=== PATIENT | female | born 1965 | race Caucasian/White ===

== ENCOUNTER 2017-06-20 06:52 | Emergency (ER) | payer OTHER ==
[~2017-06-20] VITALS: Ht 162.6 cm; Wt 127.0 kg
[~2017-06-20 06:52] MED LIST: BENTYL10 MG PO; CALCIUM 500+D1 EACH PO; HYDROCHLOROTHIA25 MG PO; METOPROLOL SUCC50 MG PO; OMEGA 3 1,0001 EACH PO; ZOFRAN ODT4 MG SL
--- OUTSIDE RECORDS SUMMARY | 2017-06-20 06:56 | XMS REPORT ---
Author Author [facility] Address Unknown Phone Unavailable Care Team Providers Care Formation Testing Operator Name Role Phone CINDY PEREZ Unavailable Unavailable DEDRA SAENZ Unavailable Unavailable TUNG, YUSRA Unavailable Unavailable Problems This patient has no known problems. Allergies, Adverse Reactions, Alerts This patient has no known allergies or adverse reactions. Medications This patient has no known medications. Results Test Description Test Time Test Comments Text Results Atomic Results Result Comments TISSUE EXAM 2017-03-28 12:02:00 Surgical Pathology Report Case: [id number] Authorizing Provider: Cindy Perez Collected: 03/25/2017 1107 Ordering Location: [facility] Endoscopy Received: 2016 1359 Services Pathologist: Kellen Sanchez MD Specimens: A) - Biopsy, Gastric, random B) - Distal Esophagus, bx A. STOMACH, RANDOM, BIOPSY- REACTIVE GASTROPATHY- NEGATIVE FOR HELICOBACTER ON WARTHIN-STARRY STAINB. DISTAL ESOPHAGUS, BIOPSY- REFLUX ESOPHAGITIS- FOCAL INTESTINAL METAPLASIA- NEGATIVE FOR DYSPLASIA AND MALIGNANCY Signing Pathologist Direct Phone Line: [phone] signed by Kellen Sanchez MD on 03/28/2017 at 12:02 [id number] x 2; [id number], history of sleeve gastrectomyA. Random gastric biopsy. B. Distal esophagus biopsySpecimen is received in two containers of formalin both labeled with the patient's information.Specimen A: Labeled " random gastric biopsy" consists of five fragments of rascon tissue ranging from 0.1 to 0.3 cm, submitted in A1.Specimen B: Labeled "distal esophagus biopsy" consists of mucosal rascon-white fragments fragments of rascon tissue ranging from less than 0.1 to 0.2 cm, submitted in B1. CG/ew Performed. MR, ABDOMEN, WITH 2017-03-02 09:31:00 FINAL REPORT TECHNIQUE: MRI of the abdomen WITHOUT and WITH intravenous contrast. INDICATION : 51-year-old woman with mass of right adrenal gland. COMPARISON: Abdomen MRI ; abdomen and pelvis CTs dating back to 08/19/2005, the most recent is dated 10/07/2016. FINDINGS: LOWER THORAX: Subsegmental atelectasis and/or scarring in the left lung base. LIVER: Decreased signal intensity of the liver on opposed phase imaging, consistent with hepatic steatosis. No focal hepatic lesions. BILIARY: Gallbladder is unremarkable. No biliary ductal dilatation or filling defect.SPLEEN: No splenomegaly.PANCREAS: No focal masses or ductal dilatation. ADRENALS: Decreased signal intensity of the 1 cm right adrenal nodule on opposed phase imaging, consistent with a benign adenoma; this nodule is unchanged since exams dating back to 08/19/2005. Normal left adrenal gland.KIDNEYS/URETERS: No hydronephrosis or solid mass lesions. PERITONEUM/ RETROPERITONEUM: No free fluid.LYMPH NODES: No lymphadenopathy.VESSELS: Unremarkable. GI TRACT: No distention or wall thickening. BONES AND SOFT TISSUES : Unremarkable. IMPRESSION:Benign right adrenal adenoma, unchanged since 2005. Hepatic steatosis. Signed: Anna Gao MDReport Verified Date/Time: 03/02/2017 09:31:36 Reading Location: [address] Body Reading Room -CREATININE 2017-03-02 08:27:00 POC-CREATININE (BEAKER) (test iwtl=2003) 0.6 mg/dL 0.6-1.3 [address] [address] POC-EGFR (BEAKER) (test mmms=7450) 106 mL/min/1.73M2 URINALYSIS W/ [id number] 15:28:00* Test Item Value Reference Range Comments COLOR (BEAKER) (test lrzb=385) Light Yellow CLARITY (BEAKER) (test nyfi=216) Clear SPECIFIC GRAVITY UA (BEAKER) (test zppx=047) 1.016 1.001-1.035 PH UA (BEAKER) (test leil=145) 6.0 5.0-8.0 PROTEIN UA (BEAKER) (test hxoc=294) Negative Negative GLUCOSE UA (BEAKER) (test mevp=355) Negative Negative KETONES UA (BEAKER) (test peku=673) Negative Negative BILIRUBIN UA (BEAKER) (test oqvu=452) Negative Negative BLOOD UA (BEAKER) (test mrke=616) Trace Negative NITRITE UA (BEAKER) (test fpid=905) Negative Negative LEUKOCYTE ESTERASE UA (BEAKER) (test trvs=332) Negative Negative UROBILINOGEN UA (BEAKER) (test btdm=024) 0.2 mg/dL 0.2-1.0 RBC UA (BEAKER) (test ohvy=661) 1 /HPF WBC UA (BEAKER) (test qtij=205) 1 /HPF BACTERIA (BEAKER) (test udit=636) Rare SQUAMOUS EPITHELIAL (BEAKER) (test tvmb=177) < /HPF SOURCE(BEAKER) (test wzsj=9532) Urine, Voided HEPATIC FUNCTION [id number] 15:24:00* Test Item Value Reference Range Comments TOTAL PROTEIN (BEAKER) (test hzmi=923) 7.9 gm/dL 6.0-8.3 Specimen slightly hemolyzed ALBUMIN (BEAKER) (test ftfx=8954) 3.8 g/dL 3.5-5.0 Specimen slightly hemolyzed BILIRUBIN TOTAL (BEAKER) (test zmin=698) 0.3 mg/dL 0.2-1.2 Specimen slightly hemolyzed BILIRUBIN DIRECT (BEAKER) (test pjzz=565) < mg/dL 0.1-0.5 Specimen slightly hemolyzed ALKALINE PHOSPHATASE (BEAKER) (test sgkk=397) 91 U/L 40-150 AST (SGOT) (BEAKER) (test vkxo=310) 18 U/L 5-34 Specimen slightly hemolyzed ALT (SGPT) (BEAKER) (test ywtx=316) 22 U/L 6-55 Specimen slightly hemolyzed Specimen markedly [id number] 15:22:00* Test Item Value Reference Range Comments LIPASE (BEAKER) (test kcat=991) 33 U/L 8-78 [id number] 15:22:00* Test Item Value Reference Range Comments AMYLASE (BEAKER) (test scvv=841) 32 U/L 25-125 Specimen slightly hemolyzed BASIC METABOLIC [id number] 15:22:00* Test Item Value Reference Range Comments SODIUM (BEAKER) (test cmtv=169) 140 meq/L 136-145 POTASSIUM (BEAKER) (test eptd=526) 4.1 meq/L 3.5-5.1 Specimen slightly hemolyzed CHLORIDE (BEAKER) (test kxcs=627) 105 meq/L 98-107 CO2 (BEAKER) (test ldwa=848) 25 meq/L 22-29 BLOOD UREA NITROGEN (BEAKER) (test nzxj=297) 16 mg/dL 7-21 CREATININE (BEAKER) (test ipey=388) 0.71 mg/dL 0.57-1.25 Specimen slightly hemolyzed GLUCOSE RANDOM (BEAKER) (test xcql=894) 98 mg/dL 70-105 CALCIUM (BEAKER) (test umgg=353) 9.6 mg/dL 8.4-10.2 EGFR (BEAKER) (test dler=5276) 88 mL/min/1.73 sq m ESTIMATED GFR IS NOT ACCURATE CREATININE CLEARANCE IN PREDICTING GLOMERULAR FILTRATION RATE. ESTIMATED GFR IS NOT APPLICABLE FOR DIALYSIS PATIENTS. CBC W/PLT COUNT & AUTO [id number] 14:52:00* Test Item Value Reference Range Comments WHITE BLOOD CELL COUNT (BEAKER) (test zvry=704) 10.7 K/ L 4.0-10.0 RED BLOOD CELL COUNT (BEAKER) (test crjn=652) 4.56 M/ L 4.00-5.00 HEMOGLOBIN (BEAKER) (test eyki=538) 15.3 GM/DL 12.0-15.0 HEMATOCRIT (BEAKER) (test hxhr=575) 42.5 % 36.0-45.0 MEAN CORPUSCULAR VOLUME (BEAKER) (test ntij=398) 93.1 fL 82.0-99.0 MEAN CORPUSCULAR HEMOGLOBIN (BEAKER) (test qahd=074) 33.6 pg 27.0-33.0 MEAN CORPUSCULAR HEMOGLOBIN CONC (BEAKER) (test eueu=273) 36.1 GM/DL 32.0- 36.0 RED CELL DISTRIBUTION WIDTH (BEAKER) (test daep=550) 11.8 % 10.3-14.2 PLATELET COUNT (BEAKER) (test zudh=085) 269 K/CU MM 150-430 MEAN PLATELET VOLUME (BEAKER) (test wzlx=627) 8.1 fL 6.5-10.5 NUCLEATED RED BLOOD CELLS (BEAKER) (test fkmy=414) 0 /100 WBC 0-0 NEUTROPHILS RELATIVE PERCENT (BEAKER) (test ooen=003) 62 % LYMPHOCYTES RELATIVE PERCENT (BEAKER) (test hloq=764) 27 % MONOCYTES RELATIVE PERCENT (BEAKER) (test kwns=063) 8 % EOSINOPHILS RELATIVE PERCENT (BEAKER) (test cofb=408) 2 % BASOPHILS RELATIVE PERCENT (BEAKER) (test ukgg=760) 1 % NEUTROPHILS ABSOLUTE COUNT (BEAKER) (test bbrs=763) 6.64 K/ L 1.80-8.00 LYMPHOCYTES ABSOLUTE COUNT (BEAKER) (test wohx=001) 2.84 K/ L 1.48-4.50 MONOCYTES ABSOLUTE COUNT (BEAKER) (test iwot=882) 0.90 K/ L 0.00-1.30 EOSINOPHILS ABSOLUTE COUNT (BEAKER) (test osjb=170) 0.26 K/ L 0.00-0.50 BASOPHILS ABSOLUTE COUNT (BEAKER) (test qwcu=882) 0.07 K/ L 0.00-0.20 [id number] 16:47:00* Test Item Value Reference Range Comments LAB AP CPT CODE (BEAKER) (test utni=3435) [address] CYTOLOGY [id number] 14:00:00* Test Item Value Reference Range Comments CYTOLOGY RESULT POINTER (BEAKER) (test bknu=1760) See Separate Report ALKALINE [id number] 15:22:00* Test Item Value Reference Range Comments ALKALINE PHOSPHATASE (BEAKER) (test jbeu=911) 67 U/L 40-150 Effective 02/26/2014: Alkaline Phosphatase Reference Range Change-Adult onlyNew : 40-150 Previous: [id number] 15:22:00* Test Item Value Reference Range Comments SODIUM (BEAKER) (test dpzh=419) 140 meq/L 136-145 POTASSIUM (BEAKER) (test uatk=066) 4.0 meq/L 3.5-5.1 CHLORIDE (BEAKER) (test zmyy=543) 105 meq/L 98-107 CO2 (BEAKER) (test lpwh=396) 21 meq/L 22-29 AST (SGOT)2016-06-02 15:22:00* Test Item Value Reference Range Comments AST (SGOT) (BEAKER) (test vzup=119) 19 U/L 5-34 BUN AND [id number] 15:22:00* Test Item Value Reference Range Comments BLOOD UREA NITROGEN (BEAKER) (test rrvp=397) 20 mg/dL 7-21 CREATININE (BEAKER) (test wueg=989) 0.65 mg/dL 0.57-1.25 EGFR (BEAKER) (test qfvl=4581) 97 mL/min/1.73 sq m ESTIMATED GFR IS NOT ACCURATE CREATININE CLEARANCE IN PREDICTING GLOMERULAR FILTRATION RATE. ESTIMATED GFR IS NOT APPLICABLE FOR DIALYSIS PATIENTS. PT/[id number] 15:10:00* Test Item Value Reference Range Comments PROTIME (BEAKER) (test mrrs=721) 13.1 seconds 11.7-14.7 INR (BEAKER) (test byhx=391) 1.0 <=5.9 PARTIAL THROMBOPLASTIN TIME (BEAKER) (test blkv=627) 33.5 seconds 22.5-36.0 RECOMMENDED COUMADIN/WARFARIN INR THERAPY RANGESSTANDARD DOSE: 2.0 - 3.0 Includes: PROPHYLAXIS for venous thrombosis, systemic embolization; TREATMENT for venous thrombosis and/or pulmonary embolus.HIGH RISK: Target INR is 2.5-3.5 for patients with mechanical heart valves.[id number] 15:07:00* Test Item Value Reference Range Comments HEMOGLOBIN (BEAKER) (test lhln=811) 14.7 GM/DL 12.0-15.0 PLATELET [id number] 15:07:00* Test Item Value Reference Range Comments PLATELET COUNT (MELISSA) (test emnl=299) 282 K/CU MM 150-430
--- NOTE | 2017-06-20 07:59 | Diagnostic Imaging Report ---
PROCEDURE: X-RAY CHEST, TWO VIEWS COMPARISON: Patients [facility], DX, CHEST SINGLE (PORTABLE), 09/26/2015, 9:55. INDICATIONS: COUGH, SHORTNESS OF BREATH, FEVER WITH LEFT SIDE CHEST PAIN FINDINGS: LUNGS: No consolidations or edema. Opacity and tenting of the left hemidiaphragm represents scarring from a previous inflammatory process. Similar findings were present on the prior study. PLEURA: No effusions or pneumothorax. HEART \T\ MEDIASTINUM: The heart is within normal size-limits. BONES \T\ SOFT TISSUES: No acute findings. CONCLUSION: No acute thoracic abnormality. Waldo Bee D.O. Dictated by: Waldo Bee D.O. on 06/20/2017 at 7:59 Electronically approved by: Waldo Bee D.O. on 06/20/2017 at 7:59
[2017-06-20] MEDS ORDERED: SODIUM CHLORIDE 0.9% 1000ML 1,000 ML IV SCH (08:45)
[2017-06-20] MEDS ORDERED: LEVOFLOXACIN 500 MG TAB PO ONE (08:45)
[2017-06-20] MEDS ORDERED: METHYLPREDNISOLONE SOD SUCC 125 MG/2ML VIAL IV ONE (08:45)
== END 2017-06-20 10:32 | disposition home or self-care (01) ==
LOC: ER 06:52
DX: R50.9 Fever, unspecified (principal); R05 Cough; J20.9 Acute bronchitis, unspecified
CPT/HCPCS: 71046; 99283; J2930; J7030

== ENCOUNTER 2017-10-31 13:57 | Emergency (ER) | payer OTHER ==
[~2017-10-31] VITALS: Ht 162.6 cm; Wt 127.0 kg
[2017-10-31] MEDS ORDERED: CYCLOBENZAPRINE HCL 10 MG TAB PO ONE (14:15)
[2017-10-31] MEDS ORDERED: HYDROCODONE/APAP 7.5MG-325MG 1 EA TAB PO PRN (14:15)
[2017-10-31 14:26] LABS: CLARITY,URINE CLEAR (CLEAR); COLOR,URINE YELLOW (YELLOW)
[2017-10-31 14:27] LABS: BILIRUBIN,URINE NEGATIVE (NEGATIVE); KETONES,URINE NEGATIVE (NEGATIVE); LEUKOCYTE ESTERASE ,URINE NEGATIVE (NEGATIVE); NITRITE,URINE NEGATIVE (NEGATIVE); PROTEIN,URINE DIPSTICK NEGATIVE (NEGATIVE); URINE UROBILINOGEN 0.2 mg/dL (0.2 - 1)
[2017-10-31 14:44] LABS: BACTERIA,URINE MODERATE /HPF; EPITHELIAL CELLS,URINE FEW /LPF
[2017-10-31 14:54] LABS: ALANINE AMINOTRANSFERASE 19 IU/L (0-55); ALBUMIN 3.9 g/dL (3.5-5.0); ALBUMIN/GLOBULIN RATIO 1.1 (0.8-2.0); ALKALINE PHOSPHATASE 62 IU/L (40-150); BLOOD UREA NITROGEN 13 mg/dL (7-26); BUN/CREATININE RATIO 18 (6-25); CALCIUM 9.8 mg/dL (8.4-10.2); CARBON DIOXIDE 25 mmol/L (22-29); CHLORIDE 105 mmol/L (98-107); CREATININE, SERUM 0.71 mg/dL (0.57-1.11); EST GLOMERULAR FILTRATION RATE > 60 ML/MIN (60-); GLUCOSE 82 mg/dL (74-118); LIPASE 25 U/L (8-78); SODIUM 139 mmol/L (136-145)
[2017-10-31 14:59] LABS: BASOPHILS # (AUTO) 0.1 (0.0-0.1); BASOPHILS % 0.4 % (0.0-1.0); EOSINOPHILS # (AUTO) 0.2 (0.0-0.4); EOSINOPHILS % 1.6 % (0.0-6.0); HEMATOCRIT 39.8 % (34.2-44.1); HEMOGLOBIN 14.4 g/dL (12.0-16.0); LYMPHOCYTES # (AUTO) 3.3 (1.0-3.2); LYMPHOCYTES % 29.3 % (18.0-39.1); MEAN CORPUSCULAR HEMOGLOBIN 31.9 pg (28-32); MEAN CORPUSCULAR HGB CONC 36.2 g/dL (31-35); MEAN CORPUSCULAR VOLUME 88.2 fL (81-99); MONOCYTES % 9.1 % (4.4-11.3); NEUTROPHILS # (AUTO) 6.6 (2.1-6.9); NEUTROPHILS % 59.3 % (38.7-80.0); PLATELET COUNT 272 x10e3/uL (140-360); RED BLOOD COUNT 4.51 x10e6/uL (3.6-5.1); RED CELL DISTRIBUTION WIDTH 12.7 % (11.7-14.4)
--- NOTE | 2017-10-31 15:33 | Diagnostic Imaging Report ---
PROCEDURE:X-RAY UNILATERAL RIBS WITH CHEST X-RAY COMPARISON:Chest x-ray dated 06/20/17 INDICATIONS:POSTERIOR RIGHT RIB PAIN FINDINGS: No lung consolidation. No visible pneumothorax. Mild left basilar haziness, likely subsegmental atelectasis. No acute osseous abnormality, specifically no evidence of right-sided rib fracture. CONCLUSION: No evidence of right-sided rib fracture. Dictated by: Dakota Coombs M.D. on 10/31/2017 at 15:38 Electronically approved by: Dakota Coombs M.D. on 10/31/2017 at 15:38
[2017-10-31 16:12] VITALS: BP 121/78
== END 2017-10-31 16:00 | disposition home or self-care (01) ==
LOC: ER 13:57
DX: M54.6 Pain in thoracic spine (principal); M54.5 Low back pain; K22.70 Barrett's esophagus without dysplasia
CPT/HCPCS: 36415; 71101; 80053; 81001; 83690; 85025; 87086; 99283

== ENCOUNTER 2018-04-24 18:15 | Emergency (ER) | payer OTHER ==
[~2018-04-24] VITALS: Ht 162.6 cm; Wt 72.6 kg
--- OUTSIDE RECORDS SUMMARY | 2018-04-24 18:17 | XMS REPORT | Clinical Summary ---
Author Author DELANEY [facility] Address Unknown Phone Unavailable Care Team Providers Care Five Piece Expansion Maker Hand Name Role Phone Sarah Hernandez MD PCP Allergies Comments Active Allergy Reactions Severity Noted Date IV Contrast Iodine And Iodide Anaphylaxis High 06/30/2015 Containing Products Medications End Date Status Medication Sig Dispensed Refills Start Date Active omega-3 fatty acids-fish Take 1 g by 0 oil 340-1,000 mg Cap per mouth daily . capsule Active hydroCHLOROthiazide Take 25 mg by 0 (HYDRODIURIL) 25 MG mouth daily . tablet Active LORazepam (ATIVAN) 0.5 MG Take 0.5 mg 0 tablet by mouth every 6 (six) hours as needed for Anxiety. Active multivitamin per tablet Take 1 tablet 0 by mouth daily Bariatric Multivitamin w/ Calcium. Active BIOTIN ORAL Take 5,000 0 mcg by mouth daily . Active omeprazole (PRILOSEC) 40 Take 40 mg by 0 MG capsule mouth 2 (two) times daily . Active aspirin 81 MG EC tablet Take 81 mg by 0 mouth daily. Active BACILLUS COAGULANS Take 1 tablet 0 (PROBIOTIC, B. COAGULANS, by mouth ORAL) daily Adds Collagen Protein. Active CYANOCOBALAMIN, VITAMIN Take by 0 B-12, (VITAMIN B-12 ORAL) mouth. Active cholecalciferol, vitamin Take 2,000 0 D3, 5,000 unit Tab Units by mouth daily . Active calcium carbonate (TUMS) Take 1 tablet 0 500 mg chewable tablet by mouth daily. Active IBUPROFEN IB ORAL Take 800 mg 0 by mouth as needed . Active TURMERIC/TURMERIC Take by mouth 0 EXT/PEPR EXT daily. (TURMERIC-TURMERIC EXT-PEPPER) 500-3 mg Cap Active metoprolol (TOPROL-XL) 25 Take 25 mg by 0 MG 24 hr tablet mouth daily. Active PARoxetine (PAXIL) 10 MG Take 10 mg by 0 tablet mouth every morning. Active b complex vitamins Take 1 0 capsule capsule by mouth daily. Active docusate sodium (STOOL Take 1 0 SOFTENER ORAL) capsule by mouth as needed. 08/18/2017 Discontinued metoprolol (TOPROL-XL) Take 50 mg by 0 100 MG 24 hr tablet mouth daily . 08/18/2017 Discontinued Missing or Non-Formulary Cranberry/C 0 Medication supplement . 08/18/2017 Discontinued Missing or Non-Formulary 1,000 mg 0 Medication Calcium with 800 mg Vit D . 08/18/2017 Discontinued cholecalciferol, vitamin Take 5,000 0 D3, 1,000 unit capsule Units by mouth daily . 08/18/2017 Discontinued Missing or Non-Formulary 500 mg daily 0 Medication Tumeric . 07/08/2017 Discontinued HYDROcodone-acetaminophen Take 1 tablet 0 (NORCO 5-325) 5-325 mg by mouth per tablet every 6 (six) hours as needed for Pain. 07/08/2017 Discontinued PREDNISONE ORAL Take 4 mg by 0 mouth. 08/18/2017 Discontinued DULCOLAX, BISACODYL, ORAL Take by mouth 0 as needed. 07/08/2017 Discontinued CALCIUM CARB/MAGNESIUM Take by mouth 0 HYDROX (MYLANTA ORAL) as needed. 08/18/2017 Discontinued acetaminophen-codeine Take 1 tablet 0 (TYLENOL #3) 300-30 mg by mouth per tablet every 4 (four) hours as needed for Pain. 08/18/2017 Discontinued traMADol (ULTRAM) 50 mg Take 50 mg by 0 tablet mouth every 6 (six) hours as needed for Pain. 01/16/2018 Discontinued metoprolol (TOPROL-XL) 50 Take 50 mg by 0 MG 24 hr tablet mouth daily. 02/16/2018 pantoprazole (PROTONIX) Take 1 tablet 30 tablet 0 40 MG tablet (40 mg total) 8 by mouth daily for 30 days. Active Problems Problem Noted Date Gastric perforation s/p ex-lap, primary repair with Porfirio patch 01/10/18 01/10/2018 S/P exploratory laparotomy 01/10/2018 Abnormal findings on esophagogastroduodenoscopy (EGD) 01/09/2018 Ovarian cyst 06/08/2016 Encounters Care Team Description Date Type Specialty Sarah Hernandez MD Leukocytosis, unspecified type; Cervical adenopathy 03/16/2018 Hospital Radiology Encounter 03/15/2018 Travel Sarah Hernandez MD Leukocytosis, unspecified type (Primary Dx); Cervical adenopathy 03/09/2018 Outside Orders Radiology Ashlyn Jeremías Oswaldo, HIGHWAY MAINTAINER 01/10/2018 Anesthesia Event Lonnie Brooks MD LAPAROTOMY,EXPLORATORY 01/10/2018 Surgery Hien Kolb, HIGHWAY MAINTAINER 01/09/2018 Anesthesia Gastroenterology Event Trevon, Thad Bhavesh UPPER ENDOSCOPY,DILATATION 01/09/2018 Surgery Gastroenterology Trevon, Thad Bhavesh Lori Ortega MD Shiekh Sroujieh, Kathi Oscar MD Abnormal findings on esophagogastroduodenoscopy (EGD) (Primary Dx); Gastric perforation (HCC); S/P exploratory laparotomy 01/09/2018 [facility] General Internal Medicine - Encounter 01/16/2018 Hallie Diaz MD 01/09/2018 Orders Only Internal Medicine Resource, [employer] Preadmit Phone 01/06/2018 Hospital Pre-Admission Testing Encounter Bahman Rivera MD 09/07/2017 Anesthesia Event Trevon, Thad Bhavesh COLONOSCOPY,POLYPECTOMY 09/07/2017 Surgery Trevon, Thad Bhavesh 09/07/2017 Hospital Encounter Resource, [employer]read[employer] Phone 08/18/2017 Hospital Pre-Admission Testing Encounter Daniel Orellana Jr., MD 07/22/2017 Anesthesia Gastroenterology Event Trevon, Thad Bhavesh UPPER ENDOSCOPY,DILATATION 07/22/2017 Surgery Gastroenterology Trevon, Thad Bhavesh 07/22/2017 Hospital Gastroenterology Encounter Resource, [employer] Preadmit Phone 07/15/2017 Hospital Pre-Admission Testing Encounter Torri Garcia MD 07/08/2017 Anesthesia Gastroenterology Event Trevon, Thad Bhavesh UPPER ENDOSCOPY 07/08/2017 Surgery Gastroenterology Trevon, Thad Bhavesh 07/08/2017 Hospital Gastroenterology Encounter Trevon, Thad Bhavesh UPPER ENDOSCOPY,DILATATION 06/22/2017 Surgery Gastroenterology Lolita Sharpe MD 06/22/2017 Anesthesia Gastroenterology Event Trevon, Thad Bhavesh 06/22/2017 Hospital Gastroenterology Encounter Trevon, Thad Bhavesh Efrain, [employer] Preadmit Phone 06/21/2017 Hospital Pre-Admission Testing Encounter after 04/23/2017 Social History Date Tobacco Use Types Packs/Day Years Used Current Every Day Smoker 0.25 21 Smokeless Tobacco: Never Used Tobacco Cessation: Ready to Quit: Yes; Counseling Given: Yes Comments: Has Tried Wellbutrin Alcohol Use Drinks/Week oz/Week Comments Yes Occasionally Sex Assigned at Date Recorded Not on file Industry Job Start Date Occupation Not on file Not on file Not on file Travel End Travel History Travel Start No recent travel history available. Last Filed Vital Signs Time Taken Vital Sign Reading 01/16/2018 11:24 AM CDT Blood Pressure 120/67 01/16/2018 11:24 AM CDT Pulse 52 01/16/2018 11:24 AM CDT Temperature 36.6 C (97.9 F) 01/16/2018 11:24 AM CDT Respiratory Rate 18 01/16/2018 11:24 AM CDT Oxygen Saturation 96% - Inhaled Oxygen - Concentration 01/09/2018 9:55 AM CDT Weight 77.8 kg (171 lb 8 oz) 01/09/2018 9:55 AM CDT Height 162.6 cm (5' 4") 01/09/2018 9:55 AM CDT Body Mass Index 29.44 Plan of Treatment Not on file Implants Device Identifier Shelf Expiration Date Model / Serial / Lot Implanted Type Area Manufactur er 03/10/2020 [id number] / / [id number] Barrier Adh Intceed 3x4 In 4350 - Cement/Nura Bilateral: J [id number] ler/Adhesi Abdomen &J:ETHICON Implanted: Qty: 1 on 06/08/2016 by Bradley Day MD 09/08/2017 [id number] / / [id number] Matrix Floseal Hemo W/O Ndl 10 Cement/Nura LINDER:BIO [id number] - [id number] ler/Adhesi SCI Implanted: Qty: 1 on 06/08/2016 by Bradley Day MD Procedures Comments Procedure Name Priority Date/Time Associated Diagnosis MR ORBIT FACE NECK W & WO Routine 03/16/2018 Leukocytosis, unspecified CONTRAST 3:35 PM X RAY EQUIPMENT TESTER type Cervical adenopathy POCT-CREATININE Routine 03/16/2018 2:38 PM X RAY EQUIPMENT TESTER RHYTHM STRIP - SCAN 01/17/2018 1:10 PM CDT PHOSPHORUS Routine 01/16/2018 5:05 AM CDT MAGNESIUM Routine 01/16/2018 5:05 AM CDT PHOSPHORUS Routine 01/15/2018 4:56 AM CDT MAGNESIUM Routine 01/15/2018 4:56 AM CDT POCT-GLUCOSE METER Routine 01/14/2018 10:47 PM CDT POCT-GLUCOSE METER Routine 01/14/2018 4:02 PM CDT POCT-GLUCOSE METER Routine 01/14/2018 1:02 PM CDT POCT-GLUCOSE METER Routine 01/14/2018 5:38 AM CDT PHOSPHORUS Routine 01/14/2018 4:09 AM CDT MAGNESIUM Routine 01/14/2018 4:09 AM CDT POCT-GLUCOSE METER Routine 01/14/2018 12:38 AM CDT POCT-GLUCOSE METER Routine 01/13/2018 4:01 PM CDT PHOSPHORUS Routine 01/13/2018 10:47 AM CDT MAGNESIUM Routine 01/13/2018 10:47 AM CDT POCT-GLUCOSE METER Routine 01/13/2018 5:52 AM CDT POCT-GLUCOSE METER Routine 01/12/2018 10:57 PM CDT POCT-GLUCOSE METER Routine 01/12/2018 5:41 PM CDT POCT-GLUCOSE METER Routine 01/12/2018 11:58 AM CDT POCT-GLUCOSE METER Routine 01/12/2018 5:01 AM CDT CBC W/PLT COUNT & AUTO Routine 01/12/2018 DIFFERENTIAL 4:46 AM CDT PHOSPHORUS Routine 01/12/2018 4:46 AM CDT MAGNESIUM Routine 01/12/2018 4:46 AM CDT CBC W/PLT COUNT & AUTO Routine 01/12/2018 DIFFERENTIAL 4:46 AM CDT BASIC METABOLIC PANEL (7) Routine 01/12/2018 4:46 AM CDT POCT-GLUCOSE METER Routine 01/11/2018 10:33 PM CDT TRANSFUSION SERVICE 01/11/2018 REPORT - SCAN 6:01 PM CDT POCT-GLUCOSE METER Routine 01/11/2018 5:44 PM CDT POCT-GLUCOSE METER Routine 01/11/2018 2:24 PM CDT BLOOD CULTURE Routine 01/11/2018 2:03 PM CDT BLOOD CULTURE Routine 01/11/2018 1:50 PM CDT POCT-GLUCOSE METER Routine 01/11/2018 5:50 AM CDT CBC W/PLT COUNT & AUTO Routine 01/11/2018 DIFFERENTIAL 4:28 AM CDT PHOSPHORUS Routine 01/11/2018 4:28 AM CDT MAGNESIUM Routine 01/11/2018 4:28 AM CDT CBC W/PLT COUNT & AUTO Routine 01/11/2018 DIFFERENTIAL 4:28 AM CDT BASIC METABOLIC PANEL (7) Routine 01/11/2018 4:28 AM CDT POCT-GLUCOSE METER Routine 01/10/2018 10:46 PM CDT POCT-GLUCOSE METER Routine 01/10/2018 5:41 PM CDT POCT-GLUCOSE METER Routine 01/10/2018 2:49 PM CDT XR CHEST 1 VIEW Routine 01/10/2018 PORTABLE/BEDSIDE 8:12 AM CDT ANAEROBIC CULTURE Routine 01/10/2018 6:40 AM CDT SURGICALLY OBTAINED Routine 01/10/2018 CULTURE + GRAM STAIN 6:40 AM CDT PREPARE LEUKO-REDUCED RBC Routine 01/10/2018 6:17 AM CDT LAPAROTOMY,EXPLORATORY 01/10/2018 Acute gastric perforation 6:00 AM CDT (HCC) Special Needs REQ 0600AM CBC W/PLT COUNT & AUTO Routine 01/10/2018 DIFFERENTIAL 5:03 AM CDT TYPE AND SCREEN, STAT 01/10/2018 AUTOMATED 5:03 AM CDT LACTIC ACID, VENOUS, Routine 01/10/2018 WHOLE BLOOD 5:03 AM CDT CBC W/PLT COUNT & AUTO Routine 01/10/2018 DIFFERENTIAL 5:03 AM CDT BASIC METABOLIC PANEL (7) Routine 01/10/2018 5:[address] ABDOMEN/PELVIS WITHOUT Routine 01/10/2018 IV CONTRAST 1:56 AM CDT XR ABDOMEN 1 VIEW STAT 01/10/2018 12:50 AM CDT XR CHEST 1 VIEW STAT 01/09/2018 PORTABLE/BEDSIDE 9:21 PM CDT CBC W/PLT COUNT & AUTO STAT 01/09/2018 DIFFERENTIAL 9:09 PM CDT COMPREHENSIVE METABOLIC STAT 01/09/2018 PANEL 9:09 PM CDT LIPASE STAT 01/09/2018 9:09 PM CDT CBC W/PLT COUNT & AUTO STAT 01/09/2018 DIFFERENTIAL 9:09 PM CDT TROPONIN I Routine 01/09/2018 9:09 PM CDT ECG 12-LEAD Routine 01/09/2018 9:00 PM CDT Procedure Note - Interface, External Ris In - 01/09/2018 9:02 PM CDT Ventricula r Rate 54 BPM Atrial Rate 54 BPM P-R Interval 142 ms QRS Duration 80 ms Q-T Interval 468 ms QTC Calculatio n(Bazett) 443 ms P [place] 57 degrees R [place] 15 degrees T [place] 7 degrees Sinus bradycardi a with marked sinus arrhythmia Otherwise normal ECG When compared with ECG of 6 19:56, T wave amplitude has increased in Anterior leads ECG 12-LEAD STAT 01/09/2018 9:00 PM CDT REPORT OF PROCEDURE - 01/09/2018 ENDOSCOPY URL 12:50 PM CDT UPPER 01/09/2018 Abdominal pain, acute, ENDOSCOPY,DILATATION 11:00 AM CDT epigastric Abdominal pain, unspecified abdominal location History of sleeve gastrectomy REPORT OF PROCEDURE - 09/07/2017 ENDOSCOPY URL 10:12 AM CDT TISSUE EXAM AP Routine 09/07/2017 9:45 AM CDT COLONOSCOPY,POLYPECTOMY 09/07/2017 Polyp of colon, 9:00 AM CDT unspecified part of colon, unspecified type REPORT OF PROCEDURE - 07/22/2017 ENDOSCOPY URL 2:54 PM CDT FL FLOATMAN IN OR 30 Routine 07/22/2017 MINUTE INCREMENTS 2:40 PM CDT PROCEDURE W/ C-ARM 07/22/2017 Stenosis of stomach 12:30 PM CDT Regurgitation History of sleeve gastrectomy Cyclical vomiting with nausea, 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 UPPER 07/22/2017 Stenosis of stomach ENDOSCOPY,DILATATION 12:30 PM CDT Regurgitation History of sleeve gastrectomy Cyclical vomiting with nausea, 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 REPORT OF PROCEDURE - 07/08/2017 ENDOSCOPY URL 4:48 PM CDT UPPER ENDOSCOPY 07/08/2017 Stenosis of stomach 1:30 PM CDT History of sleeve gastrectomy Regurgitation Cyclical vomiting without nausea, 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 REPORT OF PROCEDURE - 06/22/2017 ENDOSCOPY URL 1:44 PM CDT UPPER 06/22/2017 History of sleeve ENDOSCOPY,DILATATION 1:00 PM CDT gastrectomy Regurgitation Stenosis of stomach Nausea and vomiting, 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, unspecified vomiting type after 04/23/2017 Results * MR orbit face neck without & with IV contrast (03/16/2018 3:35 PM X RAY EQUIPMENT TESTER) Narrative Performed At FINAL REPORT [facility] MRI neck with and without contrast 03/16/2018 4:27 PM CLINICAL HISTORY: LEUKOCYTOSIS,UNSPECIFIED TYPE,CERVICAL ADENOPATHY TECHNIQUE: MRI of the neck was performed utilizing axial, sagittal, and coronal T2 and pre and postcontrast T1-weighted imaging sequences. COMPARISON: None available FINDINGS: Patient motion limits this examination. Pathology may be obscured. With this limitation mind, there is no mass or abnormal enhancement in the aerodigestive tract. There is no lymphadenopathy. There are no fluid collections. The salivary and thyroid glands are unremarkable. The visualized brain, orbits, and paranasal sinuses are without worrisome finding. There are mild degenerative changes in the cervical spine without high-grade foraminal or central canal stenosis. The visualized upper thorax is unremarkable. IMPRESSION: Motion limited, but otherwise unremarkable pre and postcontrast examination. Signed: Rashad Gagnon MD Report Verified Date/Time:03/16/2018 16:29:34 Reading Location: [facility] [address] Radiology Reading Room Procedure Note Interface, External Ris In - 03/16/2018 4:31 PM X RAY EQUIPMENT TESTER FINAL REPORT MRI neck with and without contrast 03/16/2018 4:27 PM CLINICAL HISTORY: LEUKOCYTOSIS,UNSPECIFIED TYPE,CERVICAL ADENOPATHY TECHNIQUE: MRI of the neck was performed utilizing axial, sagittal, and coronal T2 and pre and postcontrast T1-weighted imaging sequences. COMPARISON: None available FINDINGS: Patient motion limits this examination. Pathology may be obscured. With this limitation mind, there is no mass or abnormal enhancement in the aerodigestive tract. There is no lymphadenopathy. There are no fluid collections. The salivary and thyroid glands are unremarkable. The visualized brain, orbits, and paranasal sinuses are without worrisome finding. There are mild degenerative changes in the cervical spine without high-grade foraminal or central canal stenosis. The visualized upper thorax is unremarkable. IMPRESSION: Motion limited, but otherwise unremarkable pre and postcontrast examination. Signed: Rashad Gagnon MD Report Verified Date/Time: 03/16/2018 16:29:34 Reading Location: [facility] Radiology Reading Room Performing Organization Address City/[facility] Phone Number [facility] * POC-Creatinine (03/16/2018 2:38 PM X RAY EQUIPMENT TESTER) POC-Creatinine 0.6Comment: TESTED AT [facility]-KG 0.6 - 1.3 mg/dL [address] [place] [address] POC-EGFR 106 mL/min/1.73M2 [facility] Specimen Blood Narrative Performed At Performing Organization Address City/[facility] Phone Number [address] * RHYTHM STRIP - SCAN (01/17/2018 1:10 PM CDT) Narrative Performed At * Phosphorus (01/16/2018 5:05 AM CDT) Only the most recent of 6 results within the time period is included. Phosphorus 4.2 2.3 - 4.7 mg/dL [facility] Specimen Blood Performing Organization Address [facility] [place] [address] [phone] * Magnesium (01/16/2018 5:05 AM CDT) Only the most recent of 6 results within the time period is included. Magnesium 1.6 1.6 - 2.6 mg/dL [facility] Specimen Blood Performing Organization Address City/[facility] [place] [address] [facility] * POC-Glucose meter (01/14/2018 10:47 PM CDT) Only the most recent of 18 results within the time period is included. POC-Glucose Meter 83Comment: TESTED AT [facility] 70 - 110 mg/dL [address] [address] [facility] Specimen Blood Performing Organization Address City/State/Zipcode Phone Number [facility] [address] [place], [place] [id number] [facility] * CBC with platelet count + automated diff (01/12/2018 4:46 AM CDT) Only the most recent of 4 results within the time period is included. WBC 13.6 (H) 3.5 - 10.5 K/L [facility] RBC 4.11 3.93 - 5.22 M/L [facility] Hemoglobin 13.1 11.2 - 15.7 GM/DL [facility] Hematocrit 38.8 34.1 - 44.9 % [facility] MCV 94.4 79.4 - 94.8 fL [facility] MCH 31.9 25.6 - 32.2 pg [facility] MCHC 33.8 32.2 - 35.5 GM/DL [facility] RDW 12.5 11.7 - 14.4 % [facility] Platelets 219 150 - 450 K/CU MM [facility] MPV 10.8 9.4 - 12.3 fL [facility] nRBC 0 0 - 0 /100 WBC [facility] % Neutros 78 % [facility] % Lymphs 14 % [facility] % Monos 6 % [facility] % Eos 1 % [facility] % Baso 0 % [facility] # Neutros 10.69 (H) 1.56 - 6.13 K/L [facility] # Lymphs 1.90 1.18 - 3.74 K/L [facility] # Monos 0.84 (H) 0.24 - 0.36 K/L [facility] # Eos 0.10 0.04 - 0.36 K/L [facility] # Baso 0.04 0.01 - 0.08 K/L [facility] Immature 0 0 - 1 % [facility] Granulocytes-Relative [facility] Specimen Blood Performing Organization Address City/[facility]/Zipcode Phone Number [facility] [address] [place] [address] [facility] * Basic metabolic panel (01/12/2018 4:46 AM CDT) Only the most recent of 3 results within the time period is included. Sodium 141 136 - 145 meq/L [facility] Potassium 3.6 3.5 - 5.1 meq/L [facility] Chloride 113 (H) 98 - 107 meq/L [facility] CO2 19 (L) 22 - 29 meq/L [facility] BUN 17 7 - 21 mg/dL [facility] Creatinine 0.63 0.57 - 1.25 mg/dL [facility] Glucose 69 (L) 70 - 105 mg/dL [facility] Calcium 8.8 8.4 - 10.2 mg/dL [facility] EGFR 100Comment: ESTIMATED GFR IS mL/min/1.73 sq m [facility] NOT ACCURATE CREATININE [facility] CLEARANCE IN PREDICTING GLOMERULAR FILTRATION RATE. ESTIMATED GFR IS NOT APPLICABLE FOR DIALYSIS PATIENTS. Specimen Blood Performing Organization Address City/State/Zipcode Phone Number [facility] [address] [place] [address] [facility] * TRANSFUSION SERVICE REPORT - SCAN (01/11/2018 6:01 PM CDT) Narrative Performed At * Blood culture (01/11/2018 2:03 PM CDT) Only the most recent of 2 results within the time period is included. Result No growth in 5 days [facility] Specimen Blood - Arm, Left Performing Organization Address City/State/Zipcode Phone Number [facility] [address] [place] [address] [facility] * XR chest 1 view portable / bedside (01/10/2018 8:12 AM CDT) Only the most recent of 2 results within the time period is included. Narrative Performed At FINAL REPORT [facility] Chest one view INDICATION: NG tube placement COMPARISON: 01/09/2018 IMPRESSION: NG tube extends to the proximal stomach. Left upper quadrant surgical clips are present. The clinic silhouette is enlarged. Venous out prominence is exaggerated by obliquity. There is vascular congestion with increased mixed interstitial and lower lung prominent airspace opacities which could reflect worsening atelectasis and edema. Pneumonitis or aspiration cannot be excluded particularly in the lower lungs. There is costophrenic angle blunting. There is suspected small volume gas in the esophagus. No pneumothorax is identified. Signed: Shawnee Sheriff MD Report Verified Date/Time:01/10/2018 10:27:39 Reading Location: [facility] [address] Radiology Reading Room Procedure Note Interface, External Ris In - 01/10/2018 10:29 AM CDT FINAL REPORT Chest one view INDICATION: NG tube placement COMPARISON: 01/09/2018 IMPRESSION: NG tube extends to the proximal stomach. Left upper quadrant surgical clips are present. The clinic silhouette is enlarged. Venous out prominence is exaggerated by obliquity. There is vascular congestion with increased mixed interstitial and lower lung prominent airspace opacities which could reflect worsening atelectasis and edema. Pneumonitis or aspiration cannot be excluded particularly in the lower lungs. There is costophrenic angle blunting. There is suspected small volume gas in the esophagus. No pneumothorax is identified. Signed: Shawnee Sheriff MD Report Verified Date/Time: 01/10/2018 10:27:39 Reading Location: [facility] Radiology Reading Room Performing Organization Address City/[facility] Phone Number [facility] * Anaerobic culture (01/10/2018 6:40 AM CDT) Result VEILLONELLA SPECIES (A) [facility] Specimen Wound - Abdomen Performing Organization Address [facility] Phone Number [address] * Surgically obtained culture + gram stain (01/10/2018 6:40 AM CDT) Result STAPHYLOCOCCUS AUREUS (A) [facility] Result STREPTOCOCCUS, VIRIDANS GROUP [facility] ([facility] Result 1+ Diphtheroid (A) [facility] Result ACTINOMYCES ODONTOLYTICUS (A) [facility] Gram Stain Result No WBCs [facility] Gram Stain Result No organisms seen [facility] Specimen Wound - Abdomen Narrative Performed At Organism(s) under evaluation [facility] Antibiotic Method Susceptibility Organism Clindamycin 0.25: Susceptible Staphylococcus aureus Erythromycin 0.5: Susceptible Staphylococcus aureus Linezolid 2: Susceptible Staphylococcus aureus Oxacillin <=0.25: Susceptible Staphylococcus aureus Rifampin <=0.5: Susceptible Staphylococcus aureus Tetracycline <=1: Susceptible Staphylococcus aureus Trimethoprim + Sulfamethoxazole <=10: Susceptible Staphylococcus aureus Vancomycin 1: Susceptible Staphylococcus aureus Performing Organization Address [facility] Phone Number [address] * Prepare Leuko-Red RBC (01/10/2018 6:17 AM CDT) CROSSMATCH COMPATIBLE SAFETRACE TX Unit ABO O Pos SAFETRACE TX UNIT NUMBER [id number] SAFETRACE TX Status READY SAFETRACE TX Blood Bank Product RED BLOOD CELLS SAFETRACE TX PRODUCT CODE [id number] SAFETRACE TX CROSSMATCH COMPATIBLE SAFETRACE TX Unit ABO O Pos SAFETRACE TX UNIT NUMBER [id number] SAFETRACE TX Status READY SAFETRACE TX Blood Bank Product RED BLOOD CELLS SAFETRACE TX PRODUCT CODE [id number] SAFETRACE [place] Specimen Other Performing Organization Address City/[facility] Phone Number SAFETRACE [place] * Type and screen, automated (01/10/2018 5:03 AM CDT) ABO/RH AUTOMATED (BEAKER) O POSITIVE [facility] Ab Scrn NEGATIVE [facility] Specimen Blood Performing Organization Address [facility] Phone Number [address] [address] [facility] * Lactic acid, venous, whole blood (01/10/2018 5:03 AM CDT) Lactate, Venous 0.6 0.5 - 2.2 mmol/L [facility] Specimen Blood Narrative Performed At Effective 08/13/2015: Units/Reference Range Change [facility] New: 0.5-2.2 mmol/LPrevious: 5-20 mg/dL [facility] Performing Organization Address [facility] [place] Phone Number [facility] [address] [place] [address] [facility] * CT abdomen/pelvis without iv contrast (01/10/2018 1:56 AM CDT) Narrative Performed At FINAL REPORT [facility] EXAM: CT of the abdomen and pelvis, without contrast CLINICAL HISTORY:Peritonitis or perforation, hollow viscus; free air under diaphragm on KUB s/p EGD TECHNIQUE: CT of the abdomen and pelvis was performed without the intravenous administration of contrast.This exam was performed according to our departmental dose optimization program which includes automated exposure control, adjustment of the mA and/or kV according to patient's size and/or use of iterative reconstructive technique. COMPARISON:None FINDINGS: Please note study is limited due to lack of intravenous contrast. LOWER CHEST: Bibasilar subsegmental and discoid atelectasis; superimposed pneumonia cannot be excluded. LIVER: Within normal limits. BILE DUCTS: Within normal limits. GALL BLADDER: Layering sludge. PANCREAS: Within normal limits. SPLEEN: Within normal limits. ADRENALS: Within normal limits. KIDNEYS/URETERS: Within normal limits. URINARY BLADDER: Within normal limits. REPRODUCTIVE ORGANS: Status post hysterectomy. No adnexal masses. BOWEL/MESENTERY/PERITONEUM/RETROPERITONEUM: Status post sleeve gastrectomy. Multiple foci of free air localized to the upper abdomen due to a perforation at the level of the proximal gastric body adjacent to surgical clips (axial image 15-20). Fatty stranding and trace fluid in the left upper quadrant but no drainable fluid collection. Small hiatal hernia. No bowel obstruction or abnormal wall thickening. Normal appendix.Small abdominal and pelvic free fluid. VESSELS: Calcific atherosclerosis. LYMPH NODES: No abdominal or pelvic lymphadenopathy. SOFT TISSUES: Within normal limits. BONES: Within normal limits. IMPRESSION: Status post gastrectomy. Gastric perforation. Small abdominal and pelvic free fluid.No drainable fluid collection. Dr Rousseau was notified at 205a 01/10/18. Signed: Taurus Pollock MD Report Verified Date/Time:01/10/2018 02:15:15 Reading Location: [address] Body Reading Room Procedure Note Interface, External Ris In - 01/10/2018 2:17 AM CDT FINAL REPORT EXAM: CT of the abdomen and pelvis, without contrast CLINICAL HISTORY: Peritonitis or perforation, hollow viscus; free air under diaphragm on KUB s/p EGD TECHNIQUE: CT of the abdomen and pelvis was performed without the intravenous administration of contrast. This exam was performed according to our departmental dose optimization program which includes automated exposure control, adjustment of the mA and/or kV according to patient's size and/or use of iterative reconstructive technique. COMPARISON: None FINDINGS: Please note study is limited due to lack of intravenous contrast. LOWER CHEST: Bibasilar subsegmental and discoid atelectasis; superimposed pneumonia cannot be excluded. LIVER: Within normal limits. BILE DUCTS: Within normal limits. GALL BLADDER: Layering sludge. PANCREAS: Within normal limits. SPLEEN: Within normal limits. ADRENALS: Within normal limits. KIDNEYS/URETERS: Within normal limits. URINARY BLADDER: Within normal limits. REPRODUCTIVE ORGANS: Status post hysterectomy. No adnexal masses. BOWEL/MESENTERY/PERITONEUM/RETROPERITONEUM: Status post sleeve gastrectomy. Multiple foci of free air localized to the upper abdomen due to a perforation at the level of the proximal gastric body adjacent to surgical clips (axial image 15-20). Fatty stranding and trace fluid in the left upper quadrant but no drainable fluid collection. Small hiatal hernia. No bowel obstruction or abnormal wall thickening. Normal appendix. Small abdominal and pelvic free fluid. VESSELS: Calcific atherosclerosis. LYMPH NODES: No abdominal or pelvic lymphadenopathy. SOFT TISSUES: Within normal limits. BONES: Within normal limits. IMPRESSION: Status post gastrectomy. Gastric perforation. Small abdominal and pelvic free fluid. No drainable fluid collection. Dr Rousseau was notified at 205a 01/10/18. Signed: Taurus Pollock MD Report Verified Date/Time: 01/10/2018 02:15:15 Reading Location: [address] Body Reading Room Performing Organization Address City/State/Zipcode Phone Number [facility] * XR abdomen / KUB 1 view (01/10/2018 12:50 AM CDT) Narrative Performed At FINAL REPORT [facility] CLINICAL HISTORY: abdominal pain post EGD TECHNIQUE: RAD, ABDOMEN/KUB, 1 VIEW AP COMPARISON: Plain radiograph the abdomen, 08/19/2005. Impression: Surgical clips overlie the left upper quadrant. Small volume pneumoperitoneum in the left upper quadrant. Nonspecific bowel gas pattern without distended loops of bowel. Minimal listhesis and bilateral lower lungs. The findings were discussed with the patient's nurse at the time of dictation who will relay them to the physician. Signed: Ish Shaver MD Report Verified Date/Time:01/10/2018 01:28:43 Reading Location: [address] Reading Room Procedure Note Interface, External Ris In - 01/10/2018 1:30 AM CDT FINAL REPORT CLINICAL HISTORY: abdominal pain post EGD TECHNIQUE: RAD, ABDOMEN/KUB, 1 VIEW AP COMPARISON: Plain radiograph the abdomen, 08/19/2005. Impression: Surgical clips overlie the left upper quadrant. Small volume pneumoperitoneum in the left upper quadrant. Nonspecific bowel gas pattern without distended loops of bowel. Minimal listhesis and bilateral lower lungs. The findings were discussed with the patient's nurse at the time of dictation who will relay them to the physician. Signed: Ish Shaver MD Report Verified Date/Time: 01/10/2018 01:28:43 Reading Location: [address] Reading Room Performing Organization Address [facility]/Zipcode Phone Number [facility] * Troponin I (01/09/2018 9:09 PM CDT) Troponin I <0.01 0.00 - 0.03 ng/mL [facility] Specimen Blood Narrative Performed At Troponin I (TnI) levels must be interpreted in the context of the presenting [facility] symptoms and the clinical findings. Elevated TnI levels indicate myocardial [facility] damage, but are not specific for ischemic heart disease. Elevated TnI levels are seen in patients with other cardiac conditions (including myocarditis and congestive heart failure), and slight TnI elevations occur in patients with other conditions, including sepsis, renal failure, acidosis, acute neurological disease, and persistent tachyarrhythmia. Performing Organization Address [facility] [place] [address] [phone] [place] [address] * Lipase (01/09/2018 9:09 PM CDT) Lipase 43 8 - 78 U/L [facility] Specimen Blood Performing Organization Address [facility] [place] [address] [facility] * Comprehensive metabolic panel (01/09/2018 9:09 PM CDT) Protein, Total 6.2 6.0 - 8.3 gm/dL [facility] Albumin 3.6 3.5 - 5.0 g/dL [facility] Alkaline Phosphatase 61 40 - 150 U/L [facility] Total Bilirubin 0.8 0.2 - 1.2 mg/dL [facility] Sodium 143 136 - 145 meq/L [facility] Potassium 3.5 3.5 - 5.1 meq/L [facility] Chloride 111 (H) 98 - 107 meq/L [facility] CO2 23 22 - 29 meq/L [facility] BUN 23 (H) 7 - 21 mg/dL [facility] Creatinine 0.71 0.57 - 1.25 mg/dL [facility] Glucose 78 70 - 105 mg/dL [facility] Calcium 9.0 8.4 - 10.2 mg/dL [facility] AST 16 5 - 34 U/L [facility] ALT 16 6 - 55 U/L [facility] EGFR 87Comment: ESTIMATED GFR IS mL/min/1.73 sq m [facility] NOT ACCURATE CREATININE [facility] CLEARANCE IN PREDICTING GLOMERULAR FILTRATION RATE. ESTIMATED GFR IS NOT APPLICABLE FOR DIALYSIS PATIENTS. Specimen Blood Performing Organization Address City/State/Zipcode Phone Number [facility] [address] [place] [address] MED[facility] * ECG 12 lead (01/09/2018 9:00 PM CDT) Narrative Performed At Ventricular Rate 54 BPM [facility] Atrial Rate 54 BPM P-R Interval 142 ms QRS Duration 80 ms Q-T Interval 468 ms QTC Calculation(Bazett) 443 ms P [place] 57 degrees R [place] 15 degrees T [place] 7 degrees Sinus bradycardia with marked sinus arrhythmia Otherwise normal ECG When compared with ECG of 19-SEP-2015 19:56, T wave amplitude has increased in Anterior leads Confirmed by MD MARY CARMEN, OSWALDO Lopez ([id number]) on 01/10/2018 6:06:23 AM Procedure Note Interface, External Ris In - 01/10/2018 6:06 AM CDT Ventricular Rate 54 BPM Atrial Rate 54 BPM P-R Interval 142 ms QRS Duration 80 ms Q-T Interval 468 ms QTC Calculation(Bazett) 443 ms P [place] 57 degrees R [place] 15 degrees T [place] 7 degrees Sinus bradycardia with marked sinus arrhythmia Otherwise normal ECG When compared with ECG of 19-SEP-2015 19:56, T wave amplitude has increased in Anterior leads Confirmed by MD MARY CARMEN, OSWALDO Lopez ([id number]) on 01/10/2018 6:06:23 AM Performing Organization Address City/State/Zipcode Phone Number [facility] * REPORT OF PROCEDURE - ENDOSCOPY URL (01/09/2018 12:50 PM CDT) Narrative Performed At * REPORT OF PROCEDURE - ENDOSCOPY URL (09/07/2017 10:12 AM CDT) Narrative Performed At * Tissue Exam (09/07/2017 9:45 AM CDT) Case Report Surgical Pathology [facility] Report [facility] Case: [id number] Authorizing Provider:Thad Lesterected: 09/07/2017 0945 Ordering Location: [facility] ENDOSCOPY Received: 09/07/2017 1102 SERVICES Pathologist: Mely Lowry MD Specimens: A) - Polyp, Colon - Cecum, POLYP-TAKEN BY LESLY LEMUS B) - Polyp, Colon - Transverse, POLYPS X2-TAKEN BY COLD SNARE DIAGNOSIS A. 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 COLON, TRANSVERSE, POLYPECTOMY: - TUBULAR ADENOMA Signing Pathologist Direct Phone Line: [phone] CPT Code(s) NZ/ew [facility] [address] x2 [facility] CLINICAL HISTORY Polyp of colon [facility] SPECIMEN SOURCE A. Cecum colon polyp; B. [facility] Transverse colon polyp x2 [facility] GROSS DESCRIPTION The specimen is received in [facility] two containers of formalin [facility] both labeled with the patient's information. Specimen A labeled "cecum colon polyp" consists of two round fragments of rascon tissue measuring 0.2 and 0.4 cm, submitted A1. Specimen B labeled "transverse colon polyp x2" consists of two fragments of rascon-pink soft tissue measuring 0.2 and 0.4 cm, submitted B1. CG/pl MICROSCOPIC DESCRIPTION No high-grade dysplasia or [facility] carcinoma is identified. [facility] Specimen Tissue - Polyp, Colon - Cecum Performing Organization Address City/State/Zipcode Phone Number [facility] [address] [place] [address] [facility] * REPORT OF PROCEDURE - ENDOSCOPY URL (07/22/2017 2:54 PM CDT) Narrative Performed At * [place] director of radiology in or 30 minute increments (07/22/2017 2:40 PM CDT) Narrative Performed At FINAL REPORT [facility] Fluoroscopy 3 views intraoperative 07/22/2017 5:02 PM CLINICAL HISTORY: Instrument localization COMPARISON: None available IMPRESSION: Please correlate imaging report findings with the procedure note prepared by Dr. Lester, as an intra-procedure imaging consultation was not requested. Reported fluoroscopy time: 0.6 minutes. Signed: Rashad Gagnon MD Report Verified Date/Time:07/22/2017 17:06:15 Reading Location: [facility] [address] Radiology Reading Room Procedure Note Interface, External Ris In - 07/22/2017 5:08 PM CDT FINAL REPORT Fluoroscopy 3 views intraoperative 07/22/2017 5:02 PM CLINICAL HISTORY: Instrument localization COMPARISON: None available IMPRESSION: Please correlate imaging report findings with the procedure note prepared by Dr. Lester, as an intra-procedure imaging consultation was not requested. Reported fluoroscopy time: 0.6 minutes. Signed: Rashad Gagnon MD Report Verified Date/Time: 07/22/2017 17:06:15 Reading Location: [facility] [address] Radiology Reading Room Performing Organization Address City/State/Zipcode Phone Number [facility] * REPORT OF PROCEDURE - ENDOSCOPY URL (07/08/2017 4:48 PM CDT) Narrative Performed At * REPORT OF PROCEDURE - ENDOSCOPY URL (06/22/2017 1:44 PM CDT) Narrative Performed At after 04/23/2017 Insurance Payer Benefit Subscriber ID Type Phone Address Plan / Group [employer] - [employer] HMO xxxxxxxxxx HMO/POS POS QPOS Advance Directives Patient has advance care planning documents, and code status on file. For more i nformation, please contact: [address] [address] Date Inactivated Comments Code Status Date Activated 01/16/2018 3:38 PM Full Code 01/09/2018 5:55 PM This code status was determined by: Patient
[2018-04-24 19:00] LABS: BASOPHILS # (AUTO) 0.1 (0.0-0.1); BASOPHILS % 0.4 % (0.0-1.0); EOSINOPHILS # (AUTO) 0.3 (0.0-0.4); EOSINOPHILS % 2.9 % (0.0-6.0); HEMATOCRIT 42.8 % (34.2-44.1); HEMOGLOBIN 15.1 g/dL (12.0-16.0); LYMPHOCYTES # (AUTO) 3.9 (1.0-3.2); LYMPHOCYTES % 32.7 % (18.0-39.1); MEAN CORPUSCULAR HEMOGLOBIN 31.6 pg (28-32); MEAN CORPUSCULAR HGB CONC 35.3 g/dL (31-35); MEAN CORPUSCULAR VOLUME 89.5 fL (81-99); MONOCYTES # (AUTO) 0.8 (0.2-0.8); MONOCYTES % 6.8 % (4.4-11.3); NEUTROPHILS # (AUTO) 6.7 (2.1-6.9); NEUTROPHILS % 56.9 % (38.7-80.0); PLATELET COUNT 290 x10e3/uL (140-360); RED BLOOD COUNT 4.78 x10e6/uL (3.6-5.1); RED CELL DISTRIBUTION WIDTH 12.8 % (11.7-14.4)
[2018-04-24] MEDS ORDERED: PHENAZOPYRIDINE HCL 100 MG TAB PO ONE (19:00)
[2018-04-24 19:21] LABS: ALANINE AMINOTRANSFERASE 25 IU/L (0-55); ALBUMIN 3.6 g/dL (3.5-5.0); ALBUMIN/GLOBULIN RATIO 1.2 (0.8-2.0); ALKALINE PHOSPHATASE 77 IU/L (40-150); ANION GAP 14.1 mmol/L (8-16); BLOOD UREA NITROGEN 31 mg/dL (7-26); BUN/CREATININE RATIO 39 (6-25); CALCIUM 9.3 mg/dL (8.4-10.2); CARBON DIOXIDE 25 mmol/L (22-29); CHLORIDE 105 mmol/L (98-107); EST GLOMERULAR FILTRATION RATE > 60 ML/MIN (60-); GLUCOSE 134 mg/dL (74-118); POTASSIUM 3.1 mmol/L (3.5-5.1); SODIUM 141 mmol/L (136-145)
[2018-04-24] MEDS ORDERED: ONDANSETRON HCL INJ 2 MG/ML VIAL IV ONE (19:30)
[2018-04-24] MEDS ORDERED: MORPHINE SULFATE INJ 4 MG/ML INJ IV ONE (19:30)
[2018-04-24 19:38] LABS: CLARITY,URINE TURBID (CLEAR); COLOR,URINE RED (YELLOW)
[2018-04-24 19:39] LABS: BILIRUBIN,URINE NEGATIVE (NEGATIVE); KETONES,URINE NEGATIVE (NEGATIVE); LEUKOCYTE ESTERASE ,URINE NEGATIVE (NEGATIVE); NITRITE,URINE NEGATIVE (NEGATIVE); PROTEIN,URINE DIPSTICK 3+ (NEGATIVE); URINE UROBILINOGEN 0.2 mg/dL (0.2 - 1)
[2018-04-24 19:40] LABS: BACTERIA,URINE RARE /HPF; EPITHELIAL CELLS,URINE RARE /LPF; RBC,URINE >50 /HPF (0-5); WBC,URINE (MAN) 0-5 /HPF (0-5)
== END 2018-04-24 20:40 | disposition left against medical advice (07) ==
LOC: ER 18:15
DX: R30.0 Dysuria (principal); R31.0 Gross hematuria; R10.32 Left lower quadrant pain
CPT/HCPCS: 36415; 80053; 81001; 85025; 87086; 99282